=== PATIENT | female | born 1995 | race Caucasian/White ===

== ENCOUNTER 2019-01-10 22:59 | Emergency (ER) | payer MEDICAID ==
[2019-01-11 00:47] LABS: CHLORIDE,CL 106 mmol/L (98-107); SODIUM,NA 139 mmol/L (136-145)
--- NOTE | 2019-01-11 00:55 | EDM.PDOC ---
<Robert Garner - Last Filed: 01/11/19 01:04> ED HPI GENERAL MEDICAL PROBLEM - General Chief Complaint: Abdominal Pain Stated Complaint: PT SPOKE TO NURSE Time Seen by Provider: 01/10/19 23:46 - History of Present Illness INITIAL COMMENTS - FREE TEXT/NARRATIVE: HISTORY AND PHYSICAL: History of present illness: A 23-year-old female with a history of stage IV liver cirrhosis secondary to hepatitis C and alcoholism presents to the emergency department for further evaluation of right upper quadrant pain. The patient was recently informed that she is with twins. She is 10 weeks along in her . Earlier this evening the patient was elevated for her abdominal pain at [facility] and was instructed for her to seek medical care at [facility]. The patient's baseline pain is described as a burning aching right upper quadrant pain is a 4 out of 10. Her chronic abdominal pain has increased to 7 out of 10 which is constant and has found no on relieving factors she has not attempted any [id number] measures to decrease her pain. She denies vaginal bleeding or leaking of fluid, urinary frequency, urgency or dysuria. She has had no recent fevers or chills well as no episodes of nausea or vomiting. Review of systems: As per history of present illness and below otherwise all systems reviewed and negative. Past medical history: As per history of present illness and as reviewed below otherwise noncontributory. Surgical history: As per history of present illness and as reviewed below otherwise noncontributory. Social history: No reported history of drug or alcohol abuse. Family history: As per history of present illness and as reviewed below otherwise noncontributory. Physical exam: Constitutional: Well-developed well-nourished nontoxic appearing HEENT: Atraumatic, normocephalic, pupils reactive, negative for conjunctival pallor or scleral icterus, mucous membranes moist, throat clear, neck supple, nontender, trachea midline. Lungs: Clear to auscultation, breath sounds equal bilaterally, chest nontender. Heart: S1S2, regular, negative for clicks, rubs, or JVD. Abdomen: Soft, nondistended, tenderness to deep palpation of right quadrant that does not radiate. Pelvis: Stable nontender. Genitourinary: Deferred. Rectal: Deferred. Extremities: Atraumatic, negative for cords or calf pain. Neurovascular unremarkable. Neuro: Awake, alert, oriented. Cranial nerves II through XII unremarkable. Cerebellum unremarkable. Motor and sensory unremarkable throughout. Exam nonfocal. Diagnostics: CMP, Amylase, Lipase, Quant HCG Therapeutics: Abdominal pain Impression: [] Plan: [] Definitive disposition and diagnosis as appropriate pending reevaluation and review of above. Right Upper Abdominal Pain Score (Numeric/FACES): 9 - Related Data Allergies Allergy/AdvReac Type Severity Reaction Status Date / Time blueberry Allergy Anaphylactic Verified 01/10/19 23:09 Shock Home Meds: Home Meds Comb No.42/Folic Acid [Prena1 Chew Tablet] 1 mg PO DAILY 01/10/19 [ History] Past Medical History Gastrointestinal History: Reports: Cirrhosis Musculoskeletal History: Reports: Fracture Other Musculoskeletal History: Left arm and right arm and right leg fractures. - Infectious Disease History Infectious Disease History: Reports: Hepatitis C - Past Surgical History HEENT Surgical History: Reports: Adenoidectomy, Tonsillectomy GI Surgical History: Reports: Cholecystectomy Social & Family History - Family History Family Medical History: Noncontributory - Tobacco Use Smoking Status *Q: Never Smoker - Caffeine Use Caffeine Use: Reports: Coffee - Recreational Drug Use Recreational Drug Use: Yes Recreational Drug Type: Reports: Marijuana/Hashish Recreational Drug Use Frequency: Monthly Course - Vital Signs Last Recorded V/S: Last Vital Signs Temp 36.7 C 01/10/19 23:11 Pulse 91 01/10/19 23:11 Resp 16 01/10/19 23:11 BP 136/86 01/10/19 23:11 Pulse Ox 98 01/10/19 23:11 - Orders/Labs/Meds Labs: Laboratory Tests 01/10/19 01/11/19 01/11/19 Range/Units 23:15 00:05 00:05 WBC 5.48 (4.0-11.0) K/uL RBC 4.64 (4.30-5.90) M/uL Hgb 14.3 (12.0-16.0) g/dL Hct 42.0 (36.0-46.0) % MCV 90.5 (80.0-98.0) fL MCH 30.8 (27.0-32.0) pg MCHC 34.0 (31.0-37.0) g/dL RDW Std Deviation 43.8 (28.0-62.0) fl RDW Coeff of Rob 13 (11.0-15.0) % Plt Count 169 (150-400) K/uL MPV 9.20 (7.40-12.00) fL Neut % (Auto) 60.9 (48.0-80.0) % Lymph % (Auto) 28.5 (16.0-40.0) % [place] % (Auto) 7.1 (0.0-15.0) % Eos % (Auto) 3.1 (0.0-7.0) % Baso % (Auto) 0.4 (0.0-1.5) % Neut # (Auto) 3.3 (1.4-5.7) K/uL Lymph # (Auto) 1.6 (0.6-2.4) K/uL [place] # (Auto) 0.4 (0.0-0.8) K/uL Eos # (Auto) 0.2 (0.0-0.7) K/uL Baso # (Auto) 0.0 (0.0-0.1) K/uL Nucleated RBC % 0.0 /100WBC Nucleated RBCs # 0 K/uL Sodium 139 (136-145) mmol/L Potassium 4.3 (3.5-5.1) mmol/L Chloride 106 (98-107) mmol/L Carbon Dioxide 24.0 (21.0-32.0) mmol/L BUN 9 (7.0-18.0) mg/dL Creatinine 0.5 L (0.6-1.0) mg/dL Est Cr Clr Drug Dosing 182.88 mL/min Estimated GFR (MDRD) > 60.0 ml/min Glucose 89 (74-106) mg/dL Calcium 8.4 L (8.5-10.1) mg/dL Total Bilirubin 0.6 (0.2-1.0) mg/dL AST 176 H (15-37) IU/L ALT 349 H (14-63) IU/L Alkaline Phosphatase 58 (46-116) U/L Total Protein 7.4 (6.4-8.2) g/dL Albumin 3.2 L (3.4-5.0) g/dL Globulin 4.2 H (2.6-4.0) g/dL Albumin/Globulin Ratio 0.8 L (0.9-1.6) Amylase 45 (25-115) U/L Lipase 109 (73-393) U/L HCG, Quant mIU/mL Urine Color YELLOW Urine Appearance CLEAR Urine pH 5.5 (5.0-8.0) Ur Specific [place] >= 1.030 (1.001-1.035) Urine Protein NEGATIVE (NEGATIVE) mg/dL Urine Glucose (UA) NEGATIVE (NEGATIVE) mg/dL Urine Ketones NEGATIVE (NEGATIVE) mg/dL Urine Occult Blood NEGATIVE (NEGATIVE) Urine Nitrite NEGATIVE (NEGATIVE) Urine Bilirubin NEGATIVE (NEGATIVE) Urine Urobilinogen 0.2 (<2.0) EU/dL Ur Leukocyte Esterase NEGATIVE (NEGATIVE) 01/11/19 Range/Units 00:05 WBC (4.0-11.0) K/uL RBC (4.30-5.90) M/uL Hgb (12.0-16.0) g/dL Hct (36.0-46.0) % MCV (80.0-98.0) fL MCH (27.0-32.0) pg MCHC (31.0-37.0) g/dL RDW Std Deviation (28.0-62.0) fl RDW Coeff of Rob (11.0-15.0) % Plt Count (150-400) K/uL MPV (7.40-12.00) fL Neut % (Auto) (48.0-80.0) % Lymph % (Auto) (16.0-40.0) % [place] % (Auto) (0.0-15.0) % Eos % (Auto) (0.0-7.0) % Baso % (Auto) (0.0-1.5) % Neut # (Auto) (1.4-5.7) K/uL Lymph # (Auto) (0.6-2.4) K/uL [place] # (Auto) (0.0-0.8) K/uL Eos # (Auto) (0.0-0.7) K/uL Baso # (Auto) (0.0-0.1) K/uL Nucleated RBC % /100WBC Nucleated RBCs # K/uL Sodium (136-145) mmol/L Potassium (3.5-5.1) mmol/L Chloride (98-107) mmol/L Carbon Dioxide (21.0-32.0) mmol/L BUN (7.0-18.0) mg/dL Creatinine (0.6-1.0) mg/dL Est Cr Clr Drug Dosing mL/min Estimated GFR (MDRD) ml/min Glucose (74-106) mg/dL Calcium (8.5-10.1) mg/dL Total Bilirubin (0.2-1.0) mg/dL AST (15-37) IU/L ALT (14-63) IU/L Alkaline Phosphatase (46-116) U/L Total Protein (6.4-8.2) g/dL Albumin (3.4-5.0) g/dL Globulin (2.6-4.0) g/dL Albumin/Globulin Ratio (0.9-1.6) Amylase (25-115) U/L Lipase (73-393) U/L HCG, Quant 773258.0 mIU/mL Urine Color Urine Appearance Urine pH (5.0-8.0) Ur Specific [place] (1.001-1.035) Urine Protein (NEGATIVE) mg/dL Urine Glucose (UA) (NEGATIVE) mg/dL Urine Ketones (NEGATIVE) mg/dL Urine Occult Blood (NEGATIVE) Urine Nitrite (NEGATIVE) Urine Bilirubin (NEGATIVE) Urine Urobilinogen (<2.0) EU/dL Ur Leukocyte Esterase (NEGATIVE) Departure - Departure Disposition: Against Medical Advice 07 Clinical Impression: Abdominal pain Qualifiers: Abdominal location: right upper quadrant Qualified Code(s): R10.11 - Right upper quadrant pain - Discharge Information Referrals: PCP,None [Primary Care Provider] - Forms: ED Department Discharge Additional Instructions: Patient left AMA before discharge paperwork could be done and labs discussed <Sammi Woody - Last Filed: 01/11/19 02:37> ED HPI GENERAL MEDICAL PROBLEM - History of Present Illness INITIAL COMMENTS - FREE TEXT/NARRATIVE: This is Dr. Woody dictating addendum note as I'm the supervising physician on this case. I personally seen and evaluated the patient and the patient tells me that she has no lower abdominal pain no pelvic pain no vaginal bleeding or discharge. She says she was just concerned because her liver and right upper quadrant was hurting with unusual and she has a known history of cirrhosis. The patient denies any fevers chills nausea or vomiting and says that she had a cholecystectomy about a year ago. After our evaluation labs were ordered and due to the busy nature of the ED the patient told nursing that she had to leave and go home because she had to work in the morning and she cannot wait for us to discuss her lab test results. We have reviewed them and there is a slight bump in AST and ALT but the bilirubin is stable. On my physical exam she had very minimal tenderness on deep palpation in the right upper quadrant and the liver did not appear to me to be very enlarged or boggy. She had no lower abdominal tenderness and she was otherwise hemodynamically stable. The patient signed out AMA with nursing to go home and get some rest before going to work. Add to impression above Right upper abdominal pain with history of cirrhosis and hep C, first trimester stable, left before discussion of lab tests AMA ED ROS GENERAL - Review of Systems Review Of Systems: ROS reveals no pertinent complaints other than HPI. ED EXAM, GI/ABD - Physical Exam Exam: See Below (See dictation) Departure - Departure Time of Disposition: 02:00 Condition: Good
== END 2019-01-11 01:50 | disposition left against medical advice (07) ==
LOC: MW.ED 22:59
DX: O99.89 Other specified diseases and conditions complicating pregnancy, childbirth and the puerperium (principal); R10.11 Right upper quadrant pain; O99.311 Alcohol use complicating pregnancy, first trimester; F10.20 Alcohol dependence, uncomplicated; O26.611 Liver and biliary tract disorders in pregnancy, first trimester; K74.60 Unspecified cirrhosis of liver; Z98.890 Other specified postprocedural states; Z90.49 Acquired absence of other specified parts of digestive tract; Z91.018 Allergy to other foods; Z3A.10 10 weeks gestation of pregnancy
CPT/HCPCS: 36415; 80053; 81003; 82150; 83690; 84702; 85025; 99283; 99284

== ENCOUNTER 2019-03-16 10:35 | Emergency (ER) | payer MEDICAID ==
--- NOTE | 2019-03-16 10:55 | EDM.PDOC ---
ED HPI GENERAL MEDICAL PROBLEM - General Chief Complaint: Trauma Stated Complaint: ABD PAIN /20 WEEKS PREG Time Seen by Provider: 03/16/19 10:40 Source of Information: Reports: Patient History Limitations: Reports: No Limitations - History of Present Illness INITIAL COMMENTS - FREE TEXT/NARRATIVE: HISTORY AND PHYSICAL: History of present illness: Patient is a 24-year-old female presents to the ED today with concern of being hit by a door on the right side of her abdomen at work yesterday and she is with twins. [facility]. Patient states an hour after she was hit she started having some lower abdominal cramping which is similar to how she feels with a menstrual cycle but denies vaginal bleeding. Patient states that the pain has not gotten worse just hasn't gotten better today so she decided to come to be evaluated. Patient denies any health history. Patient denies any fall or loss of consciousness. Patient denies fever, chills, chest pain, shortness of breath, or cough. Denies headache, neck stiff ness, change in vision, syncope, or near syncope. Denies nausea, vomiting, diarrhea, constipation, or dysuria. Has not noted any blood in urine or stool. Patient has been eating and drinking appropriately. Review of systems: As per history of present illness and below otherwise all systems reviewed and negative. Past medical history: As per history of present illness and as reviewed below otherwise noncontributory. Surgical history: As per history of present illness and as reviewed below otherwise noncontributory. Social history: See social history for further information Family history: As per history of present illness and as reviewed below otherwise noncontributory. Physical exam: Physical exam is limited due to patient's body habitus. General: Patient is alert, oriented, and in no acute distress. Patient sitting comfortably on exam table. HEENT: Atraumatic, normocephalic, pupils equal and reactive bilaterally, negative for conjunctival pallor or scleral icterus, mucous membranes moist, TMs normal bilaterally, throat clear, neck supple, nontender, trachea midline. No drooling or trismus noted. No meningeal signs. No hot potato voice noted. Lungs: Clear to auscultation, breath sounds equal bilaterally, chest nontender. Heart: S1S2, regular rate and rhythm without overt murmur Abdomen: Morbidly obese. Soft, nondistended, nontender. Negative for masses or hepatosplenomegaly. Negative for costovertebral tenderness. Pelvis: Stable nontender. Genitourinary: Deferred. Rectal: Deferred. Skin: Intact, warm, dry. No lesions or rashes noted. Extremities: Atraumatic, negative for cords or calf pain. Neurovascular unremarkable. Neuro: Awake, alert, oriented. Cranial nerves II through XII unremarkable. Cerebellum unremarkable. Motor and sensory unremarkable throughout. Exam nonfocal. Notes: Trauma alert was called upon arrival to the ED. Dr. Cruz involved in patient care. Due to patient body habitus, unable to find FHT in ED. FHT on US 130 and 135 for twin Patient is unwilling to go up to labor and delivery for additional monitoring and signs a refusal of medical screening for labor and delivery form. All risks vs benefits discussed with patient and expresses understanding. Voices understanding and is agreeable to plan of care. Denies any further questions or concerns at this time. Diagnostics: 2nd Trimester US Therapeutics: None Prescription: None Impression: Abdominal injury Twin , 20 weeks Plan: 1. Tylenol as needed for pain management. This is safe to use in . 2. Follow up with your [facility] as discussed. Return to the ED as needed and as discussed. Definitive disposition and diagnosis as appropriate pending reevaluation and review of above. abdominal pain Pain Score (Numeric/FACES): 7 - Related Data Allergies Allergy/AdvReac Type Severity Reaction Status Date / Time blueberry Allergy Anaphylactic Verified 03/16/19 11:19 Shock Home Meds: Home Meds Comb No.42/Folic Acid [Prena1 Chew Tablet] 1 mg PO DAILY 01/10/19 [ History] Past Medical History Gastrointestinal History: Reports: Cirrhosis Musculoskeletal History: Reports: Fracture Other Musculoskeletal History: Left arm and right arm and right leg fractures. - Infectious Disease History Infectious Disease History: Reports: Hepatitis C - Past Surgical History HEENT Surgical History: Reports: Adenoidectomy, Tonsillectomy GI Surgical History: Reports: Cholecystectomy Social & Family History - Family History Family Medical History: Noncontributory - Caffeine Use Caffeine Use: Reports: Coffee Review of Systems - Review of Systems Review Of Systems: ROS reveals no pertinent complaints other than HPI. ED EXAM, GENERAL - Physical Exam Exam: See Below (See dictation) Course - Vital Signs Last Recorded V/S: Last Vital Signs Temp 36.2 C 03/16/19 10:45 Pulse 76 03/16/19 10:45 Resp 18 03/16/19 10:45 BP 132/61 03/16/19 10:45 Pulse Ox 99 03/16/19 10:45 Departure - Departure Time of Disposition: 12:15 Disposition: Home, Self-Care 01 Clinical Impression: Abdominal injury Qualifiers: Encounter type: initial encounter Qualified Code(s): S39.91XA - Unspecified injury of abdomen, initial encounter Twin Qualifiers: Multiple gestation type: unspecified Trimester: second trimester Qualified Code (s): O30.002 - Twin , unspecified number of placenta and unspecified number of amniotic sacs, second trimester - Discharge Information Referrals: PCP,Unobtain [Primary Care Provider] - Forms: ED Department Discharge Additional Instructions: The following information is given to patients seen in the emergency department who are being discharged to home. This information is to outline your options for follow-up care. We provide all patients seen in our emergency department with a follow-up referral. The need for follow-up, as well as the timing and circumstances, are variable depending upon the specifics of your emergency department visit. If you don't have a primary care physician on staff, we will provide you with a referral. We always advise you to contact your personal physician following an emergency department visit to inform them of the circumstance of the visit and for follow-up with them and/or the need for any referrals to a consulting specialist. The emergency department will also refer you to a specialist when appropriate. This referral assures that you have the opportunity for follow-up care with a specialist. All of these measure are taken in an effort to provide you with optimal care, which includes your follow-up. Under all circumstances we always encourage you to contact your private physician who remains a resource for coordinating your care. When calling for follow-up care, please make the office aware that this follow-up is from your recent emergency room visit. If for any reason you are refused follow-up, please contact the [facility] Emergency Department at and asked to speak to the emergency department charge nurse. [facility] Primary Care [address] [place] [id number] [facility] [address] [place] [address] [facility] [address] [place] [address] 1. Tylenol as needed for pain management. This is safe to use in . 2. Follow up with your [facility] as discussed. Return to the ED as needed and as discussed.
--- NOTE | 2019-03-16 12:09 | US ---
INDICATION: Abdominal trauma @ 2200 03/15/2019 twin gestation COMPARISON: none TECHNIQUE: Real time olmstead scale imaging of the fetus was performed as well as color Doppler analysis of the umbilical vessels. FINDINGS: Sonographic imaging demonstrates a twin living intrauterine gestation. Fetus A demonstrates a regular cardiac rate of 130 beats per minute. Fetus B demonstrates a regular cardiac rate of 135 beats per minute. Placenta anterior and appears normal without abruption. Twin a estimated weight 292 grams. Twin B estimated weight 298 grams. The following biometric measurements were obtained: Twin A: Biparietal diameter: 4.5 cm/19 weeks 6 days Head circumference: 16.6 cm/19 weeks 3 days Abdominal circumference: 14.3 cm/19 weeks 5 days Femur length: 3.0 cm/19 weeks 2 days The HC/AC ratio measures: 1.16 Twin B: Biparietal diameter: 4.3 cm/19 weeks 1 day Head circumference: 16.3 cm/19 weeks 1 day Abdominal circumference: 14.5 cm/19 weeks 6 days Femur length: 3.0 cm/19 weeks 3 days The HC/AC ratio measures: 1.13 IMPRESSION: Normal twin OB ultrasound exam. No traumatic injury. Dictated by Preet Delacruz MD @ Mar 16 2019 11:59AM Signed by Dr. Preet Delacruz @ Mar 16 2019 12:06PM
== END 2019-03-16 12:20 | disposition left against medical advice (07) ==
LOC: MW.ED 10:35
DX: O9A.212 Injury, poisoning and certain other consequences of external causes complicating pregnancy, second trimester (principal); S39.91XA Unspecified injury of abdomen, initial encounter; O30.002 Twin pregnancy, unspecified number of placenta and unspecified number of amniotic sacs, second trimester; Z3A.20 20 weeks gestation of pregnancy; Z91.018 Allergy to other foods; W22.8XXA Striking against or struck by other objects, initial encounter; Y99.0 Civilian activity done for income or pay
CPT/HCPCS: 76815; 76815-26; 99284-25

== ENCOUNTER 2020-12-09 15:56 | Observation (INO) | payer MEDICAID ==
[2020-12-09] MEDS ORDERED: diphenhydrAMINE 25 MG Cap PO PRN (16:17)
[2020-12-09] MEDS: Labetalol 100 MG Tab PO SCH (18:01)
[2020-12-09 18:28] LABS: BLOOD UREA NITROGEN,BUN 8 mg/dL (7.0-18.0); CARBON DIOXIDE,CO2 21.2 mmol/L (21.0-32.0); CHLORIDE,CL 103 mmol/L (98-107); GLUCOSE RANDOM 124 mg/dL (74-106); POTASSIUM,K 3.8 mmol/L (3.5-5.1); SODIUM,NA 138 mmol/L (136-145)
[2020-12-09] MEDS ORDERED: Aspirin 81 MG Tab.Chew PO SCH (20:00)
[2020-12-09] MEDS ORDERED: Citalopram 20 MG Tab PO SCH (20:00)
[2020-12-10] MEDS: Labetalol 100 MG Tab PO SCH ×2 (07:38→09:16)
[2020-12-10] MEDS ORDERED: Prenatal Multivitamin with Calcium/Folic Acid/Iron Tab PO SCH (09:00)
[2020-12-10] MEDS ORDERED: Acetaminophen 500 MG Tab PO PRN (10:07)
== END 2020-12-10 16:15 | disposition home or self-care (01) ==
LOC: MW.OB 15:56
PROVIDERS: ADMIT Obstetrics & Gynecology; ATTEND Obstetrics & Gynecology
DX: O10.012 Pre-existing essential hypertension complicating pregnancy, second trimester (principal); O34.219 Maternal care for unspecified type scar from previous cesarean delivery; O99.212 Obesity complicating pregnancy, second trimester; O26.612 Liver and biliary tract disorders in pregnancy, second trimester; Z3A.21 21 weeks gestation of pregnancy
CPT/HCPCS: 36415; 80053; 84156; 84550; 85027; 86850; 86900; 86901; A9270; G0378